=== PATIENT | male | born 1995 | race Hispanic/Latino ===

== ENCOUNTER 2024-01-02 14:03 | Emergency (ER) | payer SELFPAY ==
[2024-01-02 14:06] VITALS: BP 160/105
[2024-01-02 16:02] LABS: % Basophils 1.9 % (0-2); % Eosinophils 1.3 % (0-6); % Immature Granulocytes 0.2 % (0-0.5); % Lymphocytes 24.9 % (20.5-51.1); % Monocytes 9.4 % (1.7-9.3); % Neutrophils 62.3 % (42.2-75.2); Absolute Basophils 0.1 10^3/uL (0-0.2); Absolute Eosinophils 0.1 10^3/uL (0-0.7); Absolute Lymphocytes 1.3 10^3/uL (1.2-3.4); Absolute Monocytes 0.5 10^3/uL (0.1-0.6); Absolute Neutrophils 3.3 10^3/uL (1.4-6.5); Hemoglobin 14.1 g/dL (13.0-18.0); Mean Corp Hgb Conc. 36.2 g/dL (33.0-37.0); Mean Corpuscular Hgb 33.8 pg (27.0-31.0); Mean Corpuscular Volume 93.5 fL (80.0-94.0); Mean Platelet Volume 10.4 fL (7.4-10.4); Nucleated Red Blood Cells % 0 % (-); Platelet Count 151 10^3/uL (130-400); Red Blood Cell Count 4.17 10^6/uL (4.70-6.10); Red Cell Dist. Width 13.4 % (11.5-14.5); White Blood Cell Count 5.3 10^3/uL (4.8-10.8)
--- NOTE | 2024-01-02 16:06 | ED.GENMED ---
History of Present Illness
General
Chief Complaint: Musculo-Skeletal Complaint
Source: patient
Exam Limitations: none
Time Seen by Provider: 01/02/24 15:16
Nursing documentation reviewed up to this point in time: agreed with
History of Present Illness
History of Present Illness:
28-year-old male presenting to the emergency department after passing out after drinking large amount of alcohol laying on top of his right arm and felt weakness to his right arm since then. Has had some slight improvement but has not fully
resolved. Symptoms started yesterday. Denies similar symptoms in the past denies any head trauma no neck pain no nausea vomiting or additional concerns. No history of similar symptoms.
Past History
Past History
ED Past Medical History: None
ED Past Surgical History: None
Social History
Tobacco: Smoker
Alcohol: Daily
Drug: None
Review of Systems
Review of Systems
Allergies reviewed?: Yes
All Other Systems: ROS reviewed and negative except as documented in HPI and ROS
Phy Exam
Physical Exam
Physical Exam:
GENERAL: Alert , in no apparent distress
EYE: pupils equal and reactive
NECK: Supple, no significant adenopathy.
ENT: o/p clr, mmm.
CARDIAC: Regular rate and rhythm .
LUNGS: Clear breath sounds bilaterally, no acute respiratory distress, no wheezes/rales/rhonchi
ABDOMEN: Soft, without focal tenderness, no r/g, no cvat
NEUROLOGICAL: Alert and oriented, weakness to the right wrist and elbow decreased shoe fitter strength. Otherwise normal neurologic examination of the left upper extremity and lower extremities.
SKIN: Warm and dry, skin intact.
MUSCULOSKELETAL: Mild swelling to the right wrist and hand no redness or warmth no tenderness, well perfused.
PSYCH: Normal and appropriate interaction.
Course
Orders/Labs/Results
Orders:
Orders
01/02/24 15:36
CMP [Comprehensive Metabolic Panel] Urgent
Complete Blood Count/With Diff Urgent
Abnormal Lab Results
01/02/24
15:36
RBC 4.17 L 10^6/uL
(4.70-6.10)
MCH 33.8 H pg
(27.0-31.0)
Monocytes % 9.4 H %
(1.7-9.3)
BUN 6 L mg/dl
(9-20)
Creatinine 0.6 L mg/dL
(0.7-1.3)
AST 254 H U/L
(17-59)
ALT 188 H U/L
(0-50)
01/02/24 15:36
01/02/24 15:36
Vital Signs
Initial and Last Documented VS:
Initial Vital Signs
Temp Pulse Resp BP Pulse Ox
98.0 F 97 16 160/105 98
01/02/24 14:06 01/02/24 14:06 01/02/24 14:06 01/02/24 14:06 01/02/24 14:06
Last Documented Vital Signs
Temp Pulse Resp BP Pulse Ox
98.0 F 73 18 126/80 96
01/02/24 14:06 01/02/24 16:08 01/02/24 16:08 01/02/24 16:08 01/02/24 16:08
MDM/Problems Addressed
MDM/Problems Addressed:
36-year-old male presenting to the emergency department with concerns of weakness to the right arm waking up after he was laying on the arm. Symptoms ongoing since yesterday. Denies additional concerns otherwise. Here he does have weakness to the
right wrist, shoe fitter strength and elbow. This appears to consistent with a likely radial nerve palsy no additional findings no additional symptoms patient was splinted and given information for close follow-up. Return precautions given.
*Critical Care Note
Total Time (30-74mins, 75-104mins- exclusive of procedures): Not Applicable
ED Attending Note
-
Portions of this chart may have been created with voice recognition software.� Occasional wrong word or��sound alike� substitutions may have occurred due to the inherent limitations of voice recognition software.
Discharge Plan
Departure
Patient Disposition: Home (Routine Discharge)
Date of Disposition: 01/02/24
Time of Disposition: 16:06
Patient with high blood pressure during this ER visit?: No
Condition: Good
Covid-19: Not Applicable
Discharge Problem:
Acute radial nerve palsy
Instructions: Radial Nerve Entrapment (DC)
Referrals:
Florian Sheth MD [Active] - Follow up in 5-7 days
UNKNOWN - PT DOES,NOT KNOW [Family Provider] -
Activity Restrictions/Additional Instructions:
You came to the emergency department today with concerns of weakness to your right arm. You likely have a radial nerve palsy from sleeping on your arm. This should improve over the next few days please follow-up closely with neurology for
reassessment. Return to the emergency department for any worsening, new or concerning symptoms.
Interventions
Interventions:
*Nursing Disposition Last Done: 01/02/24 16:11
ED-Musculoskeletal Assessment Last Done: 01/02/24 15:38
Discharge Date and Time
Print Language: FAROESE
[2024-01-02 16:08] VITALS: BP 126/80
[2024-01-02 16:10] LABS: ALT (SGPT) 188 U/L (0-50); AST (SGOT) 254 U/L (17-59); Alkaline Phosphatase 83 U/L (38-126); Blood Urea Nitrogen 6 mg/dl (9-20); Calcium 9.4 mg/dl (8.4-10.2); Carbon Dioxide 24 mmol/L (22-30); Chloride 103 mmol/L (98-107); Glucose 93 mg/dl (70-99); Potassium 3.7 mmol/L (3.5-5.1); Sodium 139 mmol/L (135-145); Total Bilirubin 0.9 mg/dl (0.2-1.3); Total Protein 7.3 g/dl (6.3-8.2); eGFR > 60.00
== END 2024-01-02 16:12 | disposition home or self-care (01) ==
LOC: EMR 14:03
PROVIDERS: Physician Assistant; EMERGENCY PHYSICIAN Emergency Medicine
DX: G56.30 Lesion of radial nerve, unspecified upper limb (principal); F17.200 Nicotine dependence, unspecified, uncomplicated
CPT/HCPCS: 99283; 80053; 85025

== ENCOUNTER 2024-12-03 17:53 | Emergency (ER) | payer SELFPAY ==
[2024-12-03 18:04] VITALS: BP 149/103; BMI 21.8
--- NOTE | 2024-12-03 18:28 | EDRN ---
the pt continues to pull off his patient gown, BP cuff, Sp02 monitor, and surveillance monitor and is trying to pull his IV out
--- NOTE | 2024-12-03 18:39 | EDRN ---
this RN is unable to verify the pts home medications or the pts allergies, Dr. Arreaga is currently at the pts bedside attempting to speak with the pt now with measurer
[2024-12-03 18:40] LABS: Hematocrit 43.2 % (39.0-52.0); Hemoglobin 15.5 g/dL (13.0-18.0); Mean Corp Hgb Conc. 35.9 g/dL (33.0-37.0); Mean Corpuscular Volume 91.9 fL (80.0-94.0); Nucleated Red Blood Cells % 0 % (-); Platelet Count 126 10^3/uL (130-400); Red Cell Dist. Width 13.1 % (11.5-14.5)
--- NOTE | 2024-12-03 18:49 | ED.GENMED ---
History of Present Illness
General
Chief Complaint: Alcohol Problem
Source: other (Nurse who took report from ambulance)
Time Seen by Provider: 12/03/24 18:36
History of Present Illness
History of Present Illness:
History is vague. All we know is patient was brought in via ambulance apparently the family states he has been drinking 30 days straight and they do not want him in the house anymore. Patient is not able to add history. Admits to alcohol issues.
Admits to suicidal thoughts but no plan or intent.
Past History
Past History
ED Past Medical History: None
Review of Systems
Review of Systems
All Other Systems: Not applicable
Respiratory: Reports no symptoms
Cardiac: Reports no symptoms
ABD/GI: Reports no symptoms
Phy Exam
Physical Exam
Physical Exam:
GENERAL: Intoxicated but will answer simple questions and cataract. Normocephalic atraumatic
EYE: Orbits normal.
NECK: Supple, no significant adenopathy.
ENT: Pharynx without erythema
CARDIAC: Borderline tachycardic and regular no murmur
LUNGS: Clear breath sounds,normal
ABDOMEN: Soft, without focal tenderness or distention
NEUROLOGICAL: Alert. Will follow simple commands. Slurred speech. Clearly intoxicated
SKIN: Warm and dry, no rash or lesion, no discoloration, skin intact.
MUSCULOSKELETAL: No edema,no deformity.Good color
PSYCH: Mildly anxious
Scores
Withdrawal Assessment of Alcohol
Withdrawal Assessment Completed?: No
Course
Orders/Labs/Results
Orders:
Orders
12/03/24 18:06
Alcohol Urgent
Complete Blood Count/With Diff Urgent
Comprehensive Metabolic Panel Urgent
Magnesium Urgent
12/03/24 20:00
0.9% Sodium Chloride 1000 ml [Nss] 1,000 ml Mvi, Adult [Multivitamin] 10 ml Thiamine Injection 100 mg IV Wide Open mls/hr
Abnormal Lab Results
12/03/24
18:06
MCH 33.0 H pg
(27.0-31.0)
Plt Count 126 L 10^3/uL
(130-400)
Monocytes % 9.7 H %
(1.7-9.3)
BUN 6 L mg/dl
(9-20)
Creatinine 0.6 L mg/dL
(0.7-1.3)
Glucose 105 H mg/dl
(70-99)
AST 322 H U/L
(17-59)
ALT 211 H U/L
(0-50)
Albumin 5.2 H g/dl
(3.5-5.0)
Alcohol, Quantitative 517 H* mg/dl
12/03/24 18:06
12/03/24 18:06
Vital Signs
Initial and Last Documented VS:
Initial Vital Signs
Temp Pulse Resp BP Pulse Ox
97.6 F 103 16 149/103 95
12/03/24 18:04 12/03/24 18:04 12/03/24 18:04 12/03/24 18:04 12/03/24 18:04
Last Documented Vital Signs
Temp Pulse Resp BP Pulse Ox
97.6 F 72 18 140/90 100
12/03/24 18:04 12/03/24 23:34 12/03/24 23:34 12/03/24 23:34 12/03/24 23:34
MDM/Problems Addressed
Differential Diagnosis Includes:
Through cloth shrinker patient was able to answer questions. No sign of trauma. Intoxicated. However maintaining his airway and stable vital signs. Fluids observation. Patient states he would cooperate for us. States he did have some suicidal
thoughts but no intent or plan. Will reevaluate when more sober for either help for his alcohol issues or possible crisis involvement
*Pulse Oximetry
SaO2: 96
Oxygen Mode of Delivery: Room air
Patient hypoxic: no
*Critical Care Note
Total Time (30-74mins, 75-104mins- exclusive of procedures): Not Applicable
Update Note
Update Note:
2300 patient fully awake alert and oriented. Brother and neighbor/friend is here. Discussed at length with them and again with the patient. He absolutely denies wanting help for his alcohol issue. He is fully awake alert and oriented. A call
because he was was lethargic earlier. No signs of trauma. They are willing to take him home. No indication for repeating alcohol level as patient is fully awake alert oriented ambulating without difficulty and in no distress...
ED Attending Note
-
Portions of this chart may have been created with voice recognition software.� Occasional wrong word or��sound alike� substitutions may have occurred due to the inherent limitations of voice recognition software.
Discharge Plan
Departure
Patient Disposition: Home (Routine Discharge)
Date of Disposition: 12/03/24
Time of Disposition: 23:22
Patient with high blood pressure during this ER visit?: Yes
Discharge Problem:
Acute alcohol intoxication, Chronic alcohol abuse
Instructions: Alcohol Use Disorder (DC), Alcohol Poisoning (DC), BLOOD PRESSURE
Prescriptions:
No Action
Unobtainable
0
Referrals:
UNKNOWN - PT NOT,INTERVIEWE [Family Provider]
Activity Restrictions/Additional Instructions:
Please return immediately if you change your mind about getting help for your alcohol issue
Interventions
Interventions:
*Risk Screen - Suicide Last Done: 12/03/24 18:04
*General Assessment Last Done: 12/03/24 18:04
*Neglect/Abuse Screening Last Done: 12/03/24 18:04
*ED- Fall Risk Assessment Last Done: 12/03/24 18:04
*ED COVID-19 Vaccine History Last Done: 12/03/24 18:04
*Nursing Disposition Last Done: 12/03/24 23:34
ED- Neurological Assessment Last Done: 12/03/24 18:04
ED-Psychological Assessment Last Done: 12/03/24 18:04
Discharge Date and Time
Discharge Date/Time: 12/03/24 23:38
Print Language: ROMANSH
[2024-12-03 18:51] LABS: ALT (SGPT) 211 U/L (0-50); AST (SGOT) 322 U/L (17-59); Albumin 5.2 g/dl (3.5-5.0); Alkaline Phosphatase 102 U/L (38-126); Blood Urea Nitrogen 6 mg/dl (9-20); Calcium 9.1 mg/dl (8.4-10.2); Carbon Dioxide 28 mmol/L (22-30); Chloride 105 mmol/L (98-107); Estimated Creatinine Clearance > 125 ml/min; Glucose 105 mg/dl (70-99); Magnesium 2.2 mg/dl (1.6-2.3); Potassium 4.2 mmol/L (3.5-5.1); Sodium 144 mmol/L (135-145); Total Protein 8.2 g/dl (6.3-8.2); eGFR > 60.00
[2024-12-03 19:00] VITALS: BP 145/91
--- NOTE | 2024-12-03 19:49 | EDRN ---
patient passport was found after patient was first registered. per registration the name on the ems sheet was not complete, therefore pt was registered as a new patient. the passport has patient full name and pt was able to be found in [facility] as a
previous patient. pt previously under Sohan Flores 1995, [id number]. registration made aware, provider made aware. per registration, head of registration was contacted and made aware to merge charts in the morning
[2024-12-03] MEDS: MULTIVITAMIN 1011 ML IV (20:00)
[2024-12-03] MEDS: MULTIVITAMIN 1011 MG IV (20:00)
[2024-12-03 23:34] VITALS: BP 140/90
== END 2024-12-03 23:38 | disposition home or self-care (01) ==
LOC: EMR 17:53
PROVIDERS: EMERGENCY PHYSICIAN Emergency Medicine
DX: R45.851 Suicidal ideations (principal); F10.129 Alcohol abuse with intoxication, unspecified; Y90.8 Blood alcohol level of 240 mg/100 ml or more; R03.0 Elevated blood-pressure reading, without diagnosis of hypertension
CPT/HCPCS: 99285; 96365; 80053; 82077; 83735; 85025